=== PATIENT | female | born 1990 | race Caucasian/White ===

== ENCOUNTER 2019-09-23 22:13 | Inpatient (IN) ==
[2019-09-23] MEDS ORDERED: LIDOCAINE HCL 50 ML VIAL PERI PRN (23:13)
[2019-09-23] MEDS ORDERED: OXYTOCIN/DEXTROSE 5%-WATER 30 UNITS/500 ML BAG IV ONE (23:13)
[2019-09-23] MEDS ORDERED: DEXTROSE 5%-LACTATED RINGERS 1,000 ML IV PRN (23:13)
[2019-09-23] MEDS ORDERED: RINGER'S SOLUTION,LACTATED 1,000 ML IV PRN (23:13)
[2019-09-23] MEDS ORDERED: RINGER'S SOLUTION,LACTATED 1,000 ML IV ONE (23:13)
[2019-09-23] MEDS ORDERED: ONDANSETRON 4 MG TAB.RAPDIS PO PRN (23:13)
--- NOTE | 2019-09-23 23:29 | HP ---
Chief Complaint - Chief Complaint Date of Service: 09/23/19 Time of Service: 23:25 Chief Complaint: contractions History of Present Illness: 29 yo at 39 4/7 wks admitted for labor. Pt complains of contractions since 0300 this am which have continued to increase in pain and frequency. This complicated by anxiety/depression, h/o severe preeclampsia with iatrogenic PTD at 36wks. Rh positive Rubella immune GBS negative Medical History (Last Reviewed 09/23/19 @ 23:28 by Aubrey Barerto DO) PCOS (polycystic ovarian syndrome) (Chronic) History of insulin resistance (Suspected) metformin 1000mg BID. Tobacco abuse (Chronic) History of delivery (Chronic) induced at 36 wks due to severe preeclampsia (BPs) Anxiety and depression (Chronic) Anemia (Acute) Onset Date: 07/03/19 History of pre-eclampsia (Resolved) Onset Date: 2012 Asthma as a child- no hospitalizations Autoimmune deficiency syndrome Hx of migraines w/aura Tattoos Onset Date: Unknown Wears glasses Onset Date: Unknown Anorexia Onset Date: Unknown Surgical History: Surgical History (Last Reviewed 09/23/19 @ 23:28 by Aubrey Barreto DO) Hx of tympanostomy tubes Onset Date: Unknown as an [place] teeth extracted Onset Date: Unknown Family History: Family History (Last Reviewed 09/23/19 @ 23:28 by Aubrey Barreto DO) Mother Diabetes Anxiety Depression Father Depression Hyperlipemia Hypertension Grandfather Alcohol abuse Grandmother Myocardial infarction Cancer skin Obesity Hypertension Diabetes Grandmother Aneurysm Grandfather Heart disease w/pacemaker Uncle Cancer colon Social History: (Last Reviewed 09/23/19 @ 23:28 by Aubrey Barreto DO) Social History: adopted: No half-way: No Marital status: household members: spouse, children number of children: 1 current occupational status: employed current occupation: [employer] Highest education level completed: some college, no degree Sexually Active: Yes Service: No Tobacco: Smoking Status: Current every day smoker tobacco type: cigarettes Smoking cigarettes per day: 1 Alcohol: alcohol intake: current alcohol intake frequency: holiday/special occasion details: none since + UPT Substance Use: substance use type: does not use Dietary Habits: caffeine: No Exercise: Moderate/strenuous exercise - number of days: 3 frequency: 3-4 times per week Review Of Systems (GEN) - Review of Systems Generalized/Overall Review: Present: No Symptoms Reported EENTM: Present: No Symptoms Reported Respiratory: Present: No Symptoms Reported Cardiac: Present: No Symptoms Reported Abdominal: Present: Other - contractions Genitourinary: Present: No Symptoms Reported Musculoskeletal: Present: No Symptoms Reported Neurological: Present: No Symptoms Reported Skin: Present: No Symptoms Reported Endocrine: Present: No Symptoms Reported Allergies/Adverse Reactions: Allergies Allergy/AdvReac Type Severity Reaction Status Date / Time Penicillins Allergy unknown Verified 09/23/19 22:25 Home Medications: HOME MEDICATIONS PNV 153-FA 400 mcg-om3 35 mg-dha 25 mg-epa 5 mg-fish oil chew tablet 1 tab PO DAILY 03/27/19 [Last Taken 09/23/19] docusate sodium 100 mg capsule 200 mg PO DAILY PRN cap 03/27/19 [Last Taken 08/05/19] metformin 1,000 mg tablet 1,000 mg PO BID 03/27/19 [Last Taken 09/23/19] aspirin 81 mg chewable tablet 81 mg PO DAILY 05/04/19 [Last Taken 09/23/19] pediatric multivitamin 1 tab PO DAILY 05/04/19 [Last Taken 09/23/19] ferrous sulfate 325 mg (65 mg iron) tablet 325 mg PO DAILY #30 tab 07/06/19 [Last Taken 09/23/19] Exam - Exam Vital Signs: Vital Signs - Last Taken Temp 35.7 C L 09/23/19 23:22 Pulse 95 09/23/19 23:22 Resp 18 09/23/19 23:22 BP 135/76 09/23/19 23:22 Pulse Ox 98 09/23/19 23:22 Constitutional: Present: Alert, Oriented x3, Cooperative, No distress ENT Exam: Present: hearing grossly normal Neck: Absent: thyromegaly Breasts: Present: Exam deferred Respiratory: Present: lungs clear, no respiratory distress Cardiovascular/Chest: Present: regular rate, rhythm, no edema Abdomen: Present: soft, nontender, no rebound tenderness, other - gravid /Rectal: Present: Other - Cervix - 7/80/-2 now 8//-2 Extremity: Present: non-tender, no calf tenderness Skin Exam: Present: normal color, warm/dry, no cyanosis Lymphatic: Present: no adenopathy Neurologic: Present: normal mood/affect, oriented x 3 Appearance: Present: appropriate appearance, appropriate insight Eye contact: Present: cooperative, good eye contact Thoughts: Present: normal thought pattern, normal mood /affect Assessment/Plan - Assessment/Plan (1) Labor established Assessment: Admit for routine management of labor. Epidural and pitocin PRN. Problem: Acute (2) History of pre-eclampsia Problem: Chronic (3) History of insulin resistance Problem: Suspected (4) Tobacco abuse Problem: Chronic (5) Anxiety and depression Problem: Chronic (6) Anemia Problem: Acute Qualifiers: Anemia type: iron deficiency Iron deficiency anemia type: inadequate dietary iron intake Qualified Code(s): D50.8 - Other iron deficiency anemias History for History for Definition: * The number of deliveries resulting in a live the patient experienced prior to current hospitalization * The previous delivery of live twins or any live multiple gestation is considered one live event. *If primagravida or nulliparous is documented select zero for the number of previous live births. Live Events: Live Events: 1 Non Stress Test - Status NST: 09/23/19 Reason for NST: threatened labor Monitor Mode: External Acceleration: Present Decelerations: None Variability: Moderate 6-25 bpm Baseline Heart Rate: 150 Activity: reactive Reactive: 15 by 15 - Assessment Assessment & Plan: labor established - Plan NST Plan: Admit to L&D
--- NOTE | 2019-09-23 23:51 | PN ---
Progess Note - Interim Date: 09/23/19 Time: 23:49 Narrative: 09/23/19 23:49 Patient tolerating contractions well without any medication Vital signs stable. FHT: 150 baseline, reassuring contractions q 2-3 min Cervix: 8/90/-2, SROM-clear at 2334 Impression: Intrauterine at 39-4/7 weeks in labor Plan: Anticipate normal spontaneous vaginal delivery soon.
--- NOTE | 2019-09-24 01:25 | OR ---
Operative Report - Dictated Report Narrative: Spontaneous vaginal delivery of vigorously crying viable male at 0111 on 09/24/2019 with Apgars 9 and 9, weighing 3249 g in WIL position. Cord clamping delayed approximately 1 minute Placenta delivered complete, intact, with three vessel cord Estimated blood loss: Less than 50 ml Anesthesia: None Lacerations: None
[2019-09-24] MEDS ORDERED: BISACODYL 10 MG SUPP.RECT RC PRN (01:26)
[2019-09-24] MEDS ORDERED: oxyCODONE HCL/ACETAMINOPHEN 1 TAB TABLET PO PRN (01:26)
[2019-09-24] MEDS ORDERED: GLYCERIN/WITCH HAZEL LEAF 40 APPL BOX TP PRN (01:26)
[2019-09-24] MEDS ORDERED: HYDROCORTISONE 30 APPL TUBE TP PRN (01:26)
[2019-09-24] MEDS ORDERED: BENZOCAINE/MENTHOL 81 SPRAY CAN TP PRN (01:26)
[2019-09-24] MEDS ORDERED: OXYTOCIN/DEXTROSE 5%-WATER 30 UNITS/500 ML BAG IV ONE (01:26)
[2019-09-24] MEDS ORDERED: SENNOSIDES 8.6 MG TABLET PO PRN (01:26)
[2019-09-24] MEDS ORDERED: DOCUSATE SODIUM 100 MG CAPSULE PO PRN (01:26)
[2019-09-24] MEDS ORDERED: IBUPROFEN 800 MG TABLET PO PRN (01:26)
[2019-09-24 04:45] LABS: Cocaine Ur Negative (NEGATIVE); Urine Barbiturate Negative (NEGATIVE); Urine Benzodiazepines Negative (NEGATIVE); Urine Opiates Negative (NEGATIVE); Urine PCP Negative (NEGATIVE); Urine THC Negative (NEGATIVE)
[2019-09-24] MEDS: FERROUS SULFATE 325 MG TABLET PO SCH (11:03)
[2019-09-24] MEDS: PRENATAL VITS96/IRON FUM/FOLIC 1 TAB TABLET PO SCH (11:03)
[2019-09-24] MEDS: DOCUSATE SODIUM 100 MG CAPSULE PO SCH ×2 (11:03→20:48)
[2019-09-24] MEDS: IBUPROFEN 800 MG TABLET PO PRN (17:33)
[2019-09-25] MEDS: PRENATAL VITS96/IRON FUM/FOLIC 1 TAB TABLET PO SCH (10:04)
[2019-09-25] MEDS: DOCUSATE SODIUM 100 MG CAPSULE PO SCH ×2 (10:04→21:18)
[2019-09-25] MEDS: FERROUS SULFATE 325 MG TABLET PO SCH (10:04)
[2019-09-25] MEDS: IBUPROFEN 800 MG TABLET PO PRN ×2 (10:05→19:20)
--- NOTE | 2019-09-25 12:19 | PN ---
Subjective - Date and Time Seen Date: 09/25/19 Time: 12:18 Objective - Vitals Vitals: Last Vital Signs Temp 36.0 C 09/25/19 07:20 Pulse 91 09/25/19 07:20 Resp 20 09/25/19 07:20 BP 129/72 09/25/19 07:20 Pulse Ox 97 09/25/19 01:00 Patient denies complaints. Lochia wnl abdomen - soft, nontender Uterus -firm, at umbilicus - 1 no calf tenderness Impression: day #1 - s/p spontaneous vaginal delivery. Patient counseled earlier on risks and benefits to circumcision of her baby boy. Plan: Continue routine care. Circumcision on baby boy performed
[2019-09-26 07:46] VITALS: BP 120/56
--- NOTE | 2019-09-26 09:16 | PN ---
Subjective - Date and Time Seen Date: 09/26/19 Time: 09:16 Objective - Vitals Vitals: Last Vital Signs Temp 37.1 C 09/26/19 07:44 Pulse 83 09/26/19 07:44 Resp 16 09/26/19 07:44 BP 120/56 09/26/19 07:44 Pulse Ox 97 09/26/19 01:33 Patient denies complaints. Lochia wnl abdomen - soft, nontender Uterus -firm, at umbilicus - 2 no calf tenderness Impression: day #2 - s/p spontaneous vaginal delivery. Plan: Routine discharge instructions
== END 2019-09-26 10:15 | disposition home or self-care (01) | DRG 807 ==
LOC: OBCLINIC 22:13 → OB 22:43
PROVIDERS: ADMIT Obstetrics & Gynecology; ATTEND Obstetrics & Gynecology
CPT/HCPCS: 59025; 80307